=== PATIENT | male | born 1935 | race African-American/Black ===

== ENCOUNTER 2016-04-22 11:10 | Outpatient (CLI) | payer MEDICARE, MEDICAID ==
[2016-04-22 14:23] LABS: #Basophils 0.1 thou/uL (0.0-0.2); #Lymphocytes 1.2 thou/uL (1.20-3.40); #Monocytes 1.1 thou/uL (0.11-0.59); #Neutrophils 7.1 thou/uL (1.40-6.50); %Basophils 0.6 % (0.0-1.0); %Eosinophils 0.5 % (0.0-10.0); %Lymphocytes 12.2 % (21.0-51.0); Hematocrit 23.3 % (42.0-52.0); Mean Platelet Volume 6.4 fL (7.4-10.4); Red Blood Cell (RBC) Count 3.08 mill/uL (4.70-6.10); White Blood Cell (WBC) Count 9.5 thou/uL (4.8-10.8)
[2016-04-22 14:34] LABS: Anisocytosis SLIGHT = 6-15 cells (100X) (0-5/hpf); Hypochromia SLIGHT = 6-15 cells (100X) (0-5/hpf); Microcytosis SLIGHT = 6-15 cells (100X) (0-5/hpf); Target Cells SLIGHT = 2-5 cells (100X) (0-1/hpf)
== END 2016-04-22 11:11 | disposition home or self-care (01) ==
LOC: NAVSJIPCSP 11:10
PROVIDERS: ATTEND Internal Medicine
DX: Z23 Encounter for immunization (principal); R60.0 Localized edema
CPT/HCPCS: 36415; 85025; 86140

== ENCOUNTER 2016-04-30 10:24 | Outpatient (CLI) | payer MEDICARE, MEDICAID ==
[2016-04-30 12:06] LABS: Anion Gap 13 mmol/L (10-20); BUN (Urea Nitrogen) 46 mg/dL (8.4-25.7); Calc. Creatinine Clearance 0 mL/min (70-130); Carbon Dioxide 18 mmol/L (23-31); Chloride 116 mmol/L (98-107); Estimated GFR-MDRD 52
[2016-04-30 12:53] LABS: #Basophils 0.1 thou/uL (0.0-0.2); #Eosinphils 0.1 thou/uL (0.0-0.7); #Lymphocytes 1.4 thou/uL (1.20-3.40); #Monocytes 0.9 thou/uL (0.11-0.59); #Neutrophils 5.6 thou/uL (1.40-6.50); %Basophils 1.1 % (0.0-1.0); %Eosinophils 1.1 % (0.0-10.0); %Lymphocytes 17.4 % (21.0-51.0); %Monocytes 10.9 % (0.0-10.0); Hematocrit 24.5 % (42.0-52.0); Mean Platelet Volume 5.8 fL (7.4-10.4); Red Blood Cell (RBC) Count 3.29 mill/uL (4.70-6.10)
[2016-04-30 12:54] LABS: Burr Cells SLIGHT = 2-5 cells (100X) (0-1/hpf); Hypochromia SLIGHT = 6-15 cells (100X) (0-5/hpf); Microcytosis SLIGHT = 6-15 cells (100X) (0-5/hpf); Target Cells SLIGHT = 2-5 cells (100X) (0-1/hpf)
== END 2016-04-30 10:25 | disposition home or self-care (01) ==
LOC: NAVSJIPCSP 10:24 → NAV LAB 10:25
PROVIDERS: ATTEND Internal Medicine
DX: D64.9 Anemia, unspecified (principal); N18.3 Chronic kidney disease, stage 3 (moderate); I50.32 Chronic diastolic (congestive) heart failure
CPT/HCPCS: 36415; 80048; 83880; 85025; 86850; 86900; 86901

== ENCOUNTER 2016-05-01 08:04 | Observation (INO) | payer MEDICARE, MEDICAID ==
[2016-05-01 08:42] VITALS: BMI 23.8
[2016-05-01] MEDS ORDERED: Acetaminophen 325 MG TAB PO PRN ×2 (08:45→08:48)
[2016-05-01] MEDS ORDERED: PROVENTIL INHALER 6.7 G (200 INHALATIONS) INH PRN ×2 (08:48)
[2016-05-01] MEDS ORDERED: EPINEPHrine 1 MG/ML VIAL IVP PRN (08:50)
[2016-05-01] MEDS ORDERED: HYDRALAZINE HCL 50 MG PO SCH (09:00)
[2016-05-01] MEDS ORDERED: Furosemide 40 MG/4 ML VIAL SLOW IVP SCH (09:00)
[2016-05-01] MEDS: Famotidine 20 MG TAB PO SCH ×2 (11:29→20:22)
[2016-05-01 14:40] LABS: Hematocrit 24.2 % (42.0-52.0)
[2016-05-01 14:48] LABS: Anion Gap 13 mmol/L (10-20); BUN (Urea Nitrogen) 46 mg/dL (8.4-25.7); Calc. Creatinine Clearance 40 mL/min (70-130); Calcium 8.5 mg/dL (7.8-10.44); Carbon Dioxide 18 mmol/L (23-31); Chloride 117 mmol/L (98-107); Estimated GFR-MDRD 52
[2016-05-01] MEDS: Carvedilol 25 MG TAB PO SCH (16:53)
[2016-05-01 22:35] LABS: Hematocrit 28.1 % (42.0-52.0)
[2016-05-02 07:53] VITALS: BP 199/74; TEMP 97.3
[2016-05-02] MEDS: Carvedilol 25 MG TAB PO SCH (08:39)
[2016-05-02] MEDS: Famotidine 20 MG TAB PO SCH (08:39)
--- NOTE | 2016-05-03 03:28 | SS ---
ADMISSION TO OBSERVATION: 05/01/2016 DATE OF DISCHARGE FROM OBSERVATION: 05/02/2016 FINAL DIAGNOSES: 1. Recurrent anemia. 2. Ischemic colitis. 3. Chronic hypertension. 4. Complications of hypertensive cardiomyopathy, diastolic congestive heart failure. 5. Chronic kidney disease stage 3, stable. 6. Chronic atrial fibrillation, off anticoagulation secondary to recurrent bleeding. HOSPITAL COURSE: The patient is an 80-year-old black male with a longstanding of hypertension with subsequent complications of chronic kidney disease, diastolic congestive heart failure, who has also been found many years ago that have significant anemia secondary to slow gastrointestinal bleed wit h multiple colonoscopies only showing angiodysplasia, but also felt to possibly have colitis, has be en anticoagulated for chronic atrial fibrillation, developed increased bleeding. He now has been of f anticoagulation and has been doing fairly well with blood pressure control with stable chronic kid benja disease 3 with only of last transfusion required 3 months ago. He has done well with no shortne ss of breath or chest pain, but was seen in the office and was found to have a hemoglobin of 7 and a s in the past history, he became symptomatic with exacerbation of his diastolic congestive heart akil lure when his hemoglobin became less than 7. He was placed in observation, more transfused 1 unit o f packed cells with the hemoglobin increasing to 7.5, I then gave an another unit of packed cells, h is hemoglobin increased to 8.7. He remained asymptomatic during the entire stay. OBJECTIVE: VITAL SIGNS: His blood pressure was labile with initially 164/74, increasing to 199/74 prior to dis charge, pulse remained stable at 62 and irregular, O2 saturation was 95%. LUNGS: Clear. CARDIAC EXAMINATION: Showed irregular rhythm. ABDOMEN: Soft and nontender with no masses or organomegaly. SKIN AND EXTREMITIES: Displayed trace edema, no clubbing or cyanosis. There is a resolving contusi on of the left hand and wrist. LABORATORY DATA: His laboratory also showed a sodium of 144, potassium 3.7, chloride 117, bicarb 18 , BUN is 46, creatinine 1.55, which was stable. GFR 52%. He was ambulating well, tolerated his tra nsfusion and wished to be discharged home and therefore, he was discharged home with instructions to return to clinic in 1-week for another follow up with blood pressure and hemoglobin. He will be ma intained on his home medications of Tylenol as needed for aches and pain, albuterol inhaler as neede d, amlodipine 10 mg daily, carvedilol 25 twice daily, famotidine 20 twice daily, furosemide 80 daily , and hydralazine 50 mg three times daily.
== END 2016-05-02 10:05 | disposition home or self-care (01) ==
LOC: NAV ACUTE 08:04
PROVIDERS: ADMIT Internal Medicine; ATTEND Internal Medicine
PROC: 30233N1 Transfusion of Nonautologous Red Blood Cells into Peripheral Vein, Percutaneous Approach (ICD-10-PCS; principal; 2016-05-01)
DX: D64.9 Anemia, unspecified (principal); K55.9 Vascular disorder of intestine, unspecified; I13.0 Hypertensive heart and chronic kidney disease with heart failure and stage 1 through stage 4 chronic kidney disease, or unspecified chronic kidney disease; N18.3 Chronic kidney disease, stage 3 (moderate); I50.30 Unspecified diastolic (congestive) heart failure
CPT/HCPCS: 36415; 36430; 80048; 85014; 85018; 86850; 86900; 86901; A4216; G0378; G0379; J1940; P9016

== ENCOUNTER 2016-05-15 12:29 | Inpatient (IN) | payer MEDICARE, MEDICAID ==
[2016-05-15 13:47] LABS: Troponin I 0.047 ng/mL (< 0.028)
[2016-05-15 13:49] LABS: Anion Gap 14 mmol/L (10-20); BUN (Urea Nitrogen) 49 mg/dL (8.4-25.7); Calc. Creatinine Clearance 0 mL/min (70-130); Calcium 8.7 mg/dL (7.8-10.44); Carbon Dioxide 19 mmol/L (23-31); Chloride 113 mmol/L (98-107); Estimated GFR-MDRD 57
[2016-05-15 13:58] LABS: Hematocrit 25.6 % (42.0-52.0); Mean Platelet Volume 7.2 fL (7.4-10.4); Red Blood Cell (RBC) Count 3.34 mill/uL (4.70-6.10)
[2016-05-15 13:59] LABS: Anisocytosis SLIGHT = 6-15 cells (100X) (0-5/hpf); Hypochromia SLIGHT = 6-15 cells (100X) (0-5/hpf); Microcytosis SLIGHT = 6-15 cells (100X) (0-5/hpf); Neutrophil 65 % (42-75); Tear Drops SLIGHT = 2-5 cells (100X) (0-1/hpf)
[2016-05-15] MEDS ORDERED: Furosemide 40 MG/4 ML VIAL ONE (14:15)
--- NOTE | 2016-05-15 14:20 | RAD ---
PORTABLE CHEST: Date: 05-15-16 Time: 12:48 p.m. History: Dyspnea. FINDINGS: Comparison is made with exam 04-29-16. The heart is enlarged. Pleuro-parenchymal changes in the right lower hemithorax are again seen. Th ere is mild prominence of the pulmonary vascularity. No pneumothoraces are seen. POS: [facility]
[2016-05-15] MEDS ORDERED: Ondansetron HCl/PF 4 MG/2 ML Vial IVP PRN (16:37)
[2016-05-15] MEDS ORDERED: Ondansetron ODT 4 MG TAB SL PRN (16:37)
[2016-05-15] MEDS ORDERED: HYDROcodone/Acetaminophen 5/325 mg Tablet PO PRN ×2 (16:37)
[2016-05-15] MEDS ORDERED: Acetaminophen 325 MG TAB PO PRN ×2 (16:37→18:27)
[2016-05-15] MEDS ORDERED: Furosemide 20 MG/2 ML VIAL SLOW IVP SCH ×2 (16:45→20:45)
[2016-05-15] MEDS: Famotidine 20 MG TAB PO SCH (21:21)
[2016-05-16 06:09] LABS: Anion Gap 14 mmol/L (10-20); BUN (Urea Nitrogen) 50 mg/dL (8.4-25.7); Calc. Creatinine Clearance 43 mL/min (70-130); Calcium 8.8 mg/dL (7.8-10.44); Carbon Dioxide 18 mmol/L (23-31); Chloride 115 mmol/L (98-107); Estimated GFR-MDRD 59
[2016-05-16] MEDS ORDERED: Mometasone Furoate 120 PUFF 220 MCG INH SCH (06:30)
[2016-05-16 06:38] LABS: Hematocrit 28.2 % (42.0-52.0); Mean Platelet Volume 6.5 fL (7.4-10.4); Red Blood Cell (RBC) Count 3.66 mill/uL (4.70-6.10); White Blood Cell (WBC) Count 9.2 thou/uL (4.8-10.8)
[2016-05-16 06:39] LABS: Anisocytosis SLIGHT = 6-15 cells (100X) (0-5/hpf); Hypochromia SLIGHT = 6-15 cells (100X) (0-5/hpf); Microcytosis SLIGHT = 6-15 cells (100X) (0-5/hpf); Neutrophil 73 % (42-75); Target Cells MODERATE= 6-15 cells (100X) (0-1/hpf)
[2016-05-16] MEDS: Famotidine 20 MG TAB PO SCH (07:55)
[2016-05-16] MEDS ORDERED: Carvedilol 25 MG TAB PO SCH (08:00)
[2016-05-16] MEDS ORDERED: Furosemide 80 MG TAB PO SCH (09:00)
[2016-05-16] MEDS ORDERED: FLU VACC QS2016-17 36MOS UP/PF 0.5 ML SYRINGE IM ONE (09:00)
[2016-05-16] MEDS ORDERED: Furosemide 20 MG/2 ML VIAL SLOW IVP SCH (13:00)
[2016-05-16] MEDS ORDERED: Sodium Chloride 0.9% 10 ML ONE (14:28)
[2016-05-16 16:43] VITALS: BMI 20.2
[2016-05-16 17:57] VITALS: BP 172/81; TEMP 96.1
--- NOTE | 2016-05-16 23:26 | SS ---
DATE OF ADMISSION: 05/15/2016 DATE OF DISCHARGE: 05/16/2016 PRINCIPAL DIAGNOSIS: Anemia requiring blood transfusion. SECONDARY DIAGNOSES: 1. Hypertension. 2. Chronic kidney disease stage 3. 3. Chronic diastolic congestive heart failure. 4. Chronic atrial fibrillation, not a candidate for anticoagulation. 5. Chronic obstructive pulmonary disease, stable. 6. History of recurrent slow gastrointestinal bleed secondary to ischemic bowel requiring periodic blood transfusions. 7. Lower extremity venous insufficiency and stasis dermatitis. COMPLICATIONS: None. ADVERSE REACTIONS: None. PROCEDURES: Blood transfusions. COMPLICATIONS: None. HOSPITAL COURSE: The patient was admitted after presenting to the emergency room with shortness of breath. He was noticed to have a hemoglobin of 7. BNP was 700 and he does this periodically. He w as given a dose of Lasix IV and given 1 unit of blood. This morning his hemoglobin is up to 8.7. H is BNP is up to 1000, but he is breathing comfortably. He is not requiring any oxygen. He is littl e fatigued. He denies any chest pain or shortness of breath. The plan is to give him a dose of Las ix 20 mg IV ambulating in the hallways and if he does well and he has no issues, then we will discha rge home. He does live at home alone and he states that he is able to handle himself. He does have a sister who helps him out. PAST MEDICAL HISTORY: 1. Chronic obstructive pulmonary disease. 2. Hypertension. 3. Diastolic congestive heart failure. 4. Chronic kidney disease stage 3. 5. Ischemic colitis with history of slow gastrointestinal bleed. MEDICATIONS: He is on hydralazine 50 mg t.i.d., Asmanex inhaler 1 puff b.i.d., Lasix 80 mg daily, P epcid 20 b.i.d., carvedilol 25 mg b.i.d., amlodipine 10 mg daily, and Tylenol 650 q.4 hours p.r.n. ALLERGIES: No known drug allergies. FAMILY HISTORY: Noncontributory to current admission. REVIEW OF SYSTEMS: CARDIOVASCULAR: Denies any chest pain, shortness of breath, palpitations, paroxysmal nocturnal dysp ariana, orthopnea, pedal edema or orthopnea. He does have pedal edema, which is chronic. RESPIRATORY: Denies any chronic cough, expectoration or pleuritic type chest pain. GASTROINTESTINAL: Denies any nausea, vomiting, diarrhea, or constipation. GENITOURINARY: Denies any frequency or urgency. CENTRAL NERVOUS SYSTEM: Generalized weakness. PHYSICAL EXAMINATION: GENERAL: Pleasant 79-year-old -Spanish male resting comfortably in his wheelchair in no acu te distress. He responds appropriately to questions. VITAL SIGNS: He is afebrile, heart rate is 84, respirations are 20, oxygen saturation 95%, blood pr essure is 193/79, temperature was 100.1 this morning, I advised him to recheck it again. CARDIOVASCULAR: S1, S2 plus. RESPIRATORY: Normal vesicular breath sounds. ABDOMEN: Soft, nontender, bowel sounds heard in all quadrants. EXTREMITIES: 1+ edema with chronic stasis dermatitis. CENTRAL NERVOUS SYSTEM: Generalized weakness. LABORATORY VALUES: His hemoglobin on admission was 7.6, it is 8.7 now. White count is 9.2. Chemis try shows sodium of 143, potassium 3.7. BUN and creatinine 50 and 1.4, it was 49 and 1.44 yesterday . BNP 685 yesterday, 1007 this morning. PLAN: Give him IV Lasix 20 mg to ambulate in the hallways, if he does well and was deemed stable, w as safe enough to go home, then we will discharge him home and continue on his current medications. He will follow with Dr. Bryan in 2 weeks. He is to follow with low sodium diet. He is to retur n to the emergency if symptoms recur. He is to call us with any questions or concerns. DISCHARGE MEDICATIONS: Amlodipine 10 mg daily, carvedilol 25 mg b.i.d., Pepcid 20 mg b.i.d., Lasix 80 mg daily, hydralazine 50 mg t.i.d. and Asmanex inhaler 1 puff b.i.d. He is to gargle after use. For full details, please see chart.
== END 2016-05-16 17:45 | disposition home or self-care (01) | DRG 812 ==
LOC: NAV ERS 12:29 → NAV ACUTE 14:53
PROVIDERS: ADMIT Internal Medicine; ATTEND Internal Medicine
PROC: 30233N1 Transfusion of Nonautologous Red Blood Cells into Peripheral Vein, Percutaneous Approach (ICD-10-PCS; principal; 2016-05-15)
DX: D64.9 Anemia, unspecified (principal); I13.0 Hypertensive heart and chronic kidney disease with heart failure and stage 1 through stage 4 chronic kidney disease, or unspecified chronic kidney disease; I50.32 Chronic diastolic (congestive) heart failure; I48.2 Chronic atrial fibrillation; N18.3 Chronic kidney disease, stage 3 (moderate); J44.9 Chronic obstructive pulmonary disease, unspecified; I87.2 Venous insufficiency (chronic) (peripheral); Z87.19 Personal history of other diseases of the digestive system
CPT/HCPCS: 36430; 71010; 80048; 82553; 83880; 84484; 85025; 86850; 86900; 86901; 93005; 94760; 96374; A4216; J1940; P9016

== ENCOUNTER 2016-07-02 07:47 | Outpatient (CLI) | payer MEDICARE, MEDICAID ==
[2016-07-02 11:16] LABS: Bilirubin Negative (Negative); Blood, Urine Small (Negative); Clarity Cloudy (Clear); Glucose, Urine (Dipstick) Negative (Negative); Leukocyte Moderate (Negative); Nitrite Negative (Negative); Protein, Urine (Dipstick) > or equal to 300 mg/dL (Neg-Trace); Specific Gravity, Urine 1.025 (1.005-1.030); Urobilinogen 0.2 mg/dL (0.2-1.0); pH, Urine 5.5 (5.0-9.0)
[2016-07-02 12:16] LABS: Bacteria/HPF 3+ HPF (None Seen)
[2016-07-02 12:45] LABS: ALT (SGPT) 8 U/L (0-55); AST (SGOT) 9 U/L (5-34); Albumin 2.7 g/dL (3.4-4.8); Alkaline Phosphatase 82 U/L (40-150); Anion Gap 15 mmol/L (10-20); BUN (Urea Nitrogen) 57 mg/dL (8.4-25.7); Bilirubin, Total 0.5 mg/dL (0.2-1.2); Calc. Creatinine Clearance 0 mL/min (70-130); Calcium 8.6 mg/dL (7.8-10.44); Carbon Dioxide 16 mmol/L (23-31); Chloride 115 mmol/L (98-107); Estimated GFR-MDRD 28; Globulin 3.2 g/dL (2.4-3.5); Glucose 97 mg/dL (83-110); Protein, Total 5.9 g/dL (5.8-8.1); Sodium 141 mmol/L (136-145)
[2016-07-02 13:46] LABS: #Lymphocytes 1.3 thou/uL (1.20-3.40); #Monocytes 0.8 thou/uL (0.11-0.59); #Neutrophils 10.8 thou/uL (1.40-6.50); %Basophils 0.3 % (0.0-1.0); %Eosinophils 0.3 % (0.0-10.0); %Monocytes 6.5 % (0.0-10.0); %Neutrophils 82.8 % (42.0-75.0); Hemoglobin 8.5 g/dL (14.0-18.0); MDiff Complete? YES; Mean Corpuscular HGB CONC 29.2 g/dL (32.0-36.0); Mean Corpuscular Hemoglobin 24.5 pg (27.0-31.0); Mean Corpuscular Volume 83.8 fl (80.0-94.0); Mean Platelet Volume 7.7 fL (7.4-10.4); Platelet Count 244 thou/uL (130-400); RBC Distribution Width 25.3 % (11.5-14.5); Red Blood Cell (RBC) Count 3.47 mill/uL (4.70-6.10)
[2016-07-02 13:47] LABS: Anisocytosis SLIGHT = 6-15 cells (100X) (0-5/hpf); Hypochromia SLIGHT = 6-15 cells (100X) (0-5/hpf); PLT Morphology Comment Appears Adequate; Target Cells MODERATE= 6-15 cells (100X) (0-1/hpf)
== END 2016-07-02 07:48 | disposition home or self-care (01) ==
LOC: NAV LABSP 07:47
PROVIDERS: ATTEND Internal Medicine
DX: I13.0 Hypertensive heart and chronic kidney disease with heart failure and stage 1 through stage 4 chronic kidney disease, or unspecified chronic kidney disease (principal); I50.9 Heart failure, unspecified; N18.3 Chronic kidney disease, stage 3 (moderate); D64.9 Anemia, unspecified; I48.0 Paroxysmal atrial fibrillation
CPT/HCPCS: 36415; 80053; 81001; 85025; 87086

== ENCOUNTER 2016-07-08 11:50 | Outpatient (CLI) | payer MEDICARE, MEDICAID ==
[2016-07-08 12:22] LABS: #Basophils 0.1 thou/uL (0.0-0.2); #Lymphocytes 1.6 thou/uL (1.20-3.40); #Monocytes 0.7 thou/uL (0.11-0.59); #Neutrophils 9.8 thou/uL (1.40-6.50); %Basophils 0.6 % (0.0-1.0); %Eosinophils 0.4 % (0.0-10.0); %Lymphocytes 13.2 % (21.0-51.0); %Neutrophils 79.9 % (42.0-75.0); Mean Corpuscular HGB CONC 28.6 g/dL (32.0-36.0); Mean Corpuscular Hemoglobin 24.7 pg (27.0-31.0); Mean Corpuscular Volume 86.1 fl (80.0-94.0); Mean Platelet Volume 8.1 fL (7.4-10.4); Platelet Count 224 thou/uL (130-400); RBC Distribution Width 24.4 % (11.5-14.5); Red Blood Cell (RBC) Count 3.64 mill/uL (4.70-6.10); White Blood Cell (WBC) Count 12.3 thou/uL (4.8-10.8)
[2016-07-08 12:27] LABS: Anion Gap 16 mmol/L (10-20); BUN (Urea Nitrogen) 59 mg/dL (8.4-25.7); Calc. Creatinine Clearance 0 mL/min (70-130); Calcium 8.9 mg/dL (7.8-10.44); Carbon Dioxide 14 mmol/L (23-31); Chloride 117 mmol/L (98-107); Estimated GFR-MDRD 30; Glucose 92 mg/dL (83-110); Potassium 4.6 mmol/L (3.5-5.1); Sodium 142 mmol/L (136-145)
== END 2016-07-08 11:51 | disposition home or self-care (01) ==
LOC: NAV LABSP 11:50
PROVIDERS: ATTEND Internal Medicine
DX: I10 Essential (primary) hypertension (principal); D64.9 Anemia, unspecified
CPT/HCPCS: 36415; 80048; 85025

== ENCOUNTER 2016-07-16 11:43 | Outpatient (CLI) | payer MEDICARE, MEDICAID ==
[2016-07-16 15:54] LABS: Anion Gap 14 mmol/L (10-20); BUN (Urea Nitrogen) 60 mg/dL (8.4-25.7); Calc. Creatinine Clearance 0 mL/min (70-130); Calcium 8.4 mg/dL (7.8-10.44); Carbon Dioxide 17 mmol/L (23-31); Chloride 118 mmol/L (98-107); Estimated GFR-MDRD 35; Glucose 107 mg/dL (83-110); Sodium 145 mmol/L (136-145)
== END 2016-07-16 11:44 | disposition home or self-care (01) ==
LOC: NAV LABSP 11:43
PROVIDERS: ATTEND Internal Medicine
DX: I50.9 Heart failure, unspecified (principal); I10 Essential (primary) hypertension
CPT/HCPCS: 36415; 80048

== ENCOUNTER 2016-07-22 07:12 | Outpatient (CLI) | payer MEDICARE, MEDICAID ==
[2016-07-22 09:09] LABS: Bilirubin Negative (Negative); Blood, Urine Trace (Negative); Clarity Cloudy (Clear); Glucose, Urine (Dipstick) Negative (Negative); Leukocyte Moderate (Negative); Nitrite Negative (Negative); Protein, Urine (Dipstick) > or equal to 300 mg/dL (Neg-Trace); Urobilinogen 0.2 mg/dL (0.2-1.0); pH, Urine 5.5 (5.0-9.0)
[2016-07-22 09:23] LABS: Bacteria/HPF 4+ HPF (None Seen); Squamous Epithelial 0-3 HPF (0-3)
== END 2016-07-22 07:13 | disposition home or self-care (01) ==
LOC: NAV LABSP 07:12
PROVIDERS: ATTEND Internal Medicine
DX: N39.0 Urinary tract infection, site not specified (principal)
CPT/HCPCS: 81003; 81015; 87077; 87086

== ENCOUNTER 2016-08-08 10:43 | Outpatient (CLI) | payer MEDICARE, MEDICAID ==
[2016-08-08 10:57] LABS: Anion Gap 17 mmol/L (10-20); BUN (Urea Nitrogen) 71 mg/dL (8.4-25.7); Calc. Creatinine Clearance 0 mL/min (70-130); Calcium 8.5 mg/dL (7.8-10.44); Carbon Dioxide 17 mmol/L (23-31); Chloride 111 mmol/L (98-107); Estimated GFR-MDRD 26; Glucose 112 mg/dL (83-110); Potassium 3.6 mmol/L (3.5-5.1); Sodium 141 mmol/L (136-145)
[2016-08-08 11:22] LABS: %Lymphocytes 5.5 % (21.0-51.0); %Monocytes 5.8 % (0.0-10.0); %Neutrophils 87.4 % (42.0-75.0); Hemoglobin 7.3 g/dL (14.0-18.0); Mean Corpuscular Volume 76.5 fL (80.0-94.0); Mean Platelet Volume 8.2 fL (7.4-10.4); Platelet Count 263 thou/uL (130-400); RBC Distribution Width 18.4 % (11.5-14.5); Red Blood Cell (RBC) Count 3.18 mill/uL (4.70-6.10); White Blood Cell (WBC) Count 10.8 thou/uL (4.8-10.8)
[2016-08-08 11:23] LABS: #Eosinphils 0.1 thou/uL (0.0-0.7); #Lymphocytes 0.6 thou/uL (1.20-3.40); #Monocytes 0.6 thou/uL (0.11-0.59); #Neutrophils 9.4 thou/uL (1.40-6.50); %Basophils 0.5 % (0.0-1.0); %Eosinophils 0.9 % (0.0-10.0)
== END 2016-08-08 10:44 | disposition home or self-care (01) ==
LOC: NAV LABSP 10:43
PROVIDERS: ATTEND Internal Medicine
DX: N28.9 Disorder of kidney and ureter, unspecified (principal); I10 Essential (primary) hypertension; I50.9 Heart failure, unspecified; J98.4 Other disorders of lung
CPT/HCPCS: 36415; 80048; 85025